=== PATIENT | female | born 1975 | race Caucasian/White ===

== ENCOUNTER 2025-08-02 07:17 | Emergency (ER) | payer OTHER, MEDICAID, SELFPAY ==
--- NOTE | ~2025-08-02 | CT_ITS ---
CLINICAL HISTORY: left lower rib pain, s p fall off a scooter CT abdomen and pelvis without contrast Comparison: None provided Findings: The lung bases are clear. The gallbladder and solid organs are within normal limits. No renal stones. No bowel obstruction, pneumoperitoneum, or pneumatosis. Pelvic contents unremarkable. The appendix is not visualized with no imaging evidence of appendicitis. IUD is in position within the uterus. The bones are intact. IMPRESSION: No acute findings. This document has been electronically signed by: Anastacio Beltre MD on 08/02/2025 08:54:30
--- NOTE | ~2025-08-02 | CT_ITS ---
CLINICAL HISTORY: trauma CT chest without contrast Comparison: None provided Findings: The heart size is normal. The visualized thyroid and mediastinum are unremarkable. The lungs are clear. The visualized upper abdomen is unremarkable. The bones are intact. IMPRESSION: 1. Unremarkable chest CT. This document has been electronically signed by: Anastacio Beltre MD on 08/02/2025 08:52:22
[2025-08-02 07:21] VITALS: BP 142/73; PULSE 101; RESP 18; TEMP 36.7; O2SAT 99; BMI 41.2
--- NOTE | 2025-08-02 07:39 | ED_ITS ---
HPI - General Adult General Chief complaint: General Medical Stated complaint: fell at work Time Seen by Provider: 08/02/25 07:29 History of Present Illness HPI narrative: Patient is a 49-year-old female was riding on her scooter. Baseline has weakness is to bilateral legs. Patient has tipped over on the scooter and hit her left lower rib area. Not on blood thinners. There is no head injury. There is no nausea no vomiting. There is no shortness of breath. There is no diaphoresis. Patient is from home. Related Data Previous Rx's ?Medication ?Instructions ?Recorded ibuprofen 400 mg tablet 400 mg PO Q6H PRN pain #20 t abs 08/02/25 Allergies Allergy/AdvReac Type Severity Reaction Status Date / Time No Known Allergies Allergy Verified 08/02/25 07:24 Review of Systems 2 Review of Systems: Positive pain to the left lower ribs Yes all other systems are reviewed and are negative [facility] Past Medical History Attestation statement: The following information was validated with the patient. Social History Social History Advance Directives: No Advance Directives Information Provided: Yes Do you have a plan to hurt others: No Plan Patient : No Physical Exam ED Exam Exam: Appearance: Alert. Oriented X3. No acute distress. Eyes: Pupils equal, round and reactive to light. ENT: Pharynx normal. Neck: Normal inspection. Neck supple. No lymph nodes noted. No crepitus CVS: Normal heart rate and rhythm. Pulses normal. Normal S1 and S2 Respiratory: No respiratory distress. Breath sounds normal. Positive left lower rib pain there is no crepitus on palpation. No gross deformity noted. no bruising noted. Abdomen: Soft and nontender. No rigidity. No distention. good BS x4 Skin: Skin warm and dry. Normal skin color. Normal skin turgor. Extremities: No lower extremity edema. Neurovascular intact to all extremities. No Lacerations. No Rash Neuro: Oriented X 3. No motor deficit. No sensory deficit. Moving all extermities. No slurred speech Vital Signs: Vital Signs - 24 hr 08/02/25 07:21 Temperature 98.0 F Pulse Rate 101 H Respiratory Rate 18 Blood Pressure 142/73 H Pulse Oximetry 99 Oxygen Delivery Method Room Air BMI result Body Mass Index 41.2 Medical Decision Making Medical Decision Making [facility] Narrative: Status post fall. Happened 2 days ago. Complaining of pain to the left lateral posterior rib area. Inferiorly. CT scan of the chest abdomen pelvis was negative. No evidence splenic injury no evidence for fracture no pneumothorax patient well-appearing will discharge home O2 sats normal in stable condition. Differential Diagnosis Differential Diagnoses: The differential diagnosis associated with the presentation includes Lab Data [facility] Lab Attestation statement: I reviewed the patient's lab results. 08/02/25 07:57 08/02/25 07:57 Labs: Lab Results 08/02/25 Range/Units 07:57 WBC 8.4 (4.8-10.8) X10*3/uL RBC 4.87 (4.20-5.50) X10*6/uL Hgb 13.9 (12.0-16.0) g/dl Hct 42.9 (37.0-47.0) % MCV 88.1 (80.0-98.0) fL MCH 28.5 (27.0-33.0) pg MCHC 32.4 (31.0-35.0) g/dl RDW 13.2 (11.0-16.0) % Plt Count 275 (160-400) X10*3/uL MPV 9.4 (9.4-12.3) fL Immature Gran % (Auto) 0.2 (0.0-0.4) % Neut % (Auto) 64.8 (45-73) % Lymph % (Auto) 26.7 (20-40) % [place] % (Auto) 5.9 (2-11) % Eos % (Auto) 1.7 (0-4) % Baso % (Auto) 0.7 (0-2) % Lymph # (Auto) 2.3 (1.2-4.9) X10*3/uL [place] # (Auto) 0.5 (0.1-1.2) X10*3/uL Eos # (Auto) 0.1 (0.0-0.4) X10*3/uL Baso # (Auto) 0.1 (0.0-0.2) X10*3/uL Abs Immat Gran (auto) 0.02 (0.00-0.03) X10*3/uL Absolute Neuts (auto) 5.5 (2.0-8.3) x10*3/uL Absolute Nucleated RBC 0.000 (0.0-0.012) X10*3/uL Nucleated RBC % (auto) 0.0 (0.0-0.2) /100WBC Sodium 142 (135-145) mmol/L Potassium 4.2 (3.3-5.1) mmol/L Chloride 108 (96-108) mmol/L Carbon Dioxide 24 (22-29) mmol/L Anion Gap 14 (12-20) BUN 18 H (9-16) mg/dL Creatinine 0.70 (0.5-1.4) mg/dL Estim Creat Clear Calc 94.4 Estimated GFR > 60 Random Glucose 107 (60-115) mg/dL Calcium 9.8 (8.4-10.2) mg/dL Total Bilirubin 0.3 (0.0-1.0) mg/dL Direct Bilirubin 0.1 (0.0-0.5) mg/dL AST 26 (5-31) U/L ALT 23 (0-31) U/L Alkaline Phosphatase 84 (39-117) U/L Total Protein 7.4 (6.5-8.0) g/dL Albumin 4.4 (3.5-5.0) g/dL Lipase 14 (8-78) U/L Beta HCG, Quant 4 mIU/mL Independent Interpretation I performed an independent interpretation of an: CT Scan (CT scan chest abdomen pelvis was grossly negative) Radiology Impression Discussion of test interpretation with radiology: I have reviewed the radiologist's reading. Prescription Management I considered prescription management with: Antiviral and Antibiotic Social Determinants Patient?s care significantly limited by Social Determinants of Health including: Problems related to primary support group Discharge Plan Discharge Clinical Impression: Contusion Patient Disposition: Home, Self-Care Instructions: Chest Contusion (ED) Prescriptions: New ibuprofen 400 mg tablet 400 mg PO Q6H PRN (Reason: pain) Qty: 20 0RF Referrals: Jada Corey MD [Primary Care Provider, Medical] Print Language: Swedish
[2025-08-02 08:03] LABS: MANUAL DIFF FLAG NO
[2025-08-02 08:04] LABS: Hematocrit 42.9 % (37.0-47.0); Hemoglobin 13.9 g/dl (12.0-16.0); Red Blood Count 4.87 X10*6/uL (4.20-5.50); White Blood Count 8.4 X10*3/uL (4.8-10.8)
[2025-08-02 08:05] LABS: Imm Gran Abs Auto 0.02 X10*3/uL (0.00-0.03); Imm Gran Pct Auto 0.2 % (0.0-0.4); Lymphocytes Absolute Auto 2.3 X10*3/uL (1.2-4.9); Mean Corpuscular HGB Conc 32.4 g/dl (31.0-35.0); Mean Corpuscular Hemoglobin 28.5 pg (27.0-33.0); Mean Corpuscular Volume 88.1 fL (80.0-98.0); NRBC Abs Auto 0.000 X10*3/uL (0.0-0.012); NRBC Pct Auto 0.0 /100WBC (0.0-0.2); Platelet Count 275 X10*3/uL (160-400)
--- OUTSIDE RECORDS SUMMARY | 2025-08-02 08:05 | XMS_ITS | Encounter Summary ---
Author Organization [facility] Address [address] [place] [address] Care Team Providers Care Store Receiver Name Role Phone Jada Corey Primary Care Provider Reason for Referral * MRI/CAT/PET Scan (Routine) - Pending Review Specialty Diagnoses / Procedures Referred By Nidia irving Referred To Contact Procedures MR IMAGES TEMPORARY (OUTSIDE STUDY) Radiology, External [address] [place] [address] Referral ID Status Reason Start Date Expiration Date V isits Requested Visits Authorized [id number] Pending Review 07/31/2025 01/30/2027 1 1 Encounter Details Date Type Department Care Team (Late st Contact Info) Description 07/31/2025 Orders Only External Imaging [address] [place] [address] Radiology, External [address] [place] [address] Social History Tobacco Use Types Packs/Day Years Used Date Smoking Tobacco: Never Assessed Comments Unknown Sex and Gender Information Value Date Recorded Sex Assigned at Not on file Legal Sex Female 12:01 PM EDT Gender Identity Female 07/31/2025 11:21 PM EDT Sexual Orientation Straight 07/31/2025 11 :21 PM EDT documented as of this encounter Plan of Treatment Upcoming Encounters Date Type Department Care Team (Late st Contact Info) Description 08/07/2025 9:30 AM EST Office Visit [facility] [address] [phone] Nora Dozier MD PhD [address] [place] [address] Scheduled Orders Name Type Priority Associated Diagnoses Orde r Schedule MR IMAGES TEMPORARY (OUTSIDE STUDY) Imaging Ramos Routine 1 Occurrences starting 07/31/2025 until 08/31/2026 documented as of this encounter Visit Diagnoses Not on filedocumented in this encounter Care Teams Store Receiver Relationship Specialty Start Date End Date Jada Corey [address] [place] [address] PCP - General Internal Medicine 07/30/25 documented as of this encounter
--- OUTSIDE RECORDS SUMMARY | 2025-08-02 08:05 | XMS_ITS | Encounter Summary ---
Author Organization [facility] Address [address] [place] [address] Care Team Providers Care Diesel Motor Mechanic Name Role Phone Jada Corey Primary Care Provider [phone] Reason for Referral * MRI/CAT/PET Scan (Routine) - Pending Review Specialty Diagnoses / Procedures Referred By Nidia irving Referred To Contact Procedures MR IMAGES TEMPORARY (OUTSIDE STUDY) Radiology, External [address] [place] [address] Referral ID Status Reason Start Date Expiration Date V isits Requested Visits Authorized [id number] Pending Review 07/31/2025 01/30/2027 1 1 Encounter Details Date Type Department Care Team (Late st Contact Info) Description 07/31/2025 Orders Only External Imaging [address] [place] [address] Radiology, External [address] [place] [address] Social History Tobacco Use Types Packs/Day Years [...] Description 08/07/2025 9:30 AM EST Office Visit [facility] [address] [phone] Nora Dozier MD PhD [address] [place] [address] Scheduled Orders Name Type Priority Associated Diagnoses Orde r Schedule MR IMAGES TEMPORARY (OUTSIDE STUDY) Imaging Ramos Routine 1 Occurrences starting 07/31/2025 until 08/31/2026 documented as of this encounter Visit Diagnoses Not on filedocumented in this encounter Care Teams Diesel Motor Mechanic Relationship Specialty Start Date End Date Jada Corey [address] [place] [address] PCP - General Internal Medicine 07/30/25 documented as of this encounter
--- OUTSIDE RECORDS SUMMARY | 2025-08-02 08:05 | XMS_ITS | Encounter Summary ---
Author Organization [facility] Address [address] [place] [address] Care Team Providers Care Consulting Project Director Name Role Phone Jada Corey Primary Care Provider [phone] Reason for Referral * MRI/CAT/PET Scan (Routine) - Pending Review Specialty Diagnoses / Procedures Referred By Nidia irving Referred To Contact Procedures MR IMAGES TEMPORARY (OUTSIDE STUDY) Radiology, External [address] [place] [address] Referral ID Status Reason Start Date Expiration Date V isits Requested Visits Authorized [id number] Pending Review 07/31/2025 01/30/2027 1 1 Encounter Details Date Type Department Care Team (Late st Contact Info) Description 07/31/2025 Orders Only External Imaging [address] [place] [address] Radiology, External [address] [place] [address] Social History Tobacco Use Types Packs/Day Years [...] Description 08/07/2025 9:30 AM EST Office Visit [facility] [address] [phone] Nora Dozier MD PhD [address] [place] [address] Scheduled Orders Name Type Priority Associated Diagnoses Orde r Schedule MR IMAGES TEMPORARY (OUTSIDE STUDY) Imaging Ramos Routine 1 Occurrences starting 07/31/2025 until 08/31/2026 documented as of this encounter Visit Diagnoses Not on filedocumented in this encounter Care Teams Consulting Project Director Relationship Specialty Start Date End Date Jada Corey [address] [place] [address] PCP - General Internal Medicine 07/30/25 documented as of this encounter
--- OUTSIDE RECORDS SUMMARY | 2025-08-02 08:05 | XMS_ITS | Clinical Summary ---
Author Organization [employer] [facility] Address [address] [place] [address] Phone Care Team Providers Care Digital Operations Analyst Name Role Phone Jada Corey MD Primary Care Provider [phone] Social History Tobacco Use Types Packs/Day Years Used Date Smoking Tobacco: Never Assessed Comments Unknown Sex and Gender Information Value Date Recorded Sex Assigned at Female 03/24/2025 3:02 PM EDT Legal Sex Female 2:50 PM EDT Gender Identity Female 03/24/2025 3:02 PM EDT Sexual Orientation Straight 03/24/2025 3: 02 PM EDT Plan of Treatment Not on file Medical Devices Not on file Insurance [facility] Care Teams Digital Operations Analyst Relationship Specialty Start Date End Date Jada Corey MD [address] [place] [phone] PCP - General Internal Medicine 03/24/25 Additional Source Comments The information contained in this document represents components of the legal health record. It is not the complete legal health record.[facility]
--- OUTSIDE RECORDS SUMMARY | 2025-08-02 08:05 | XMS_ITS ---
Author Name [facility] Organization Unknown Care Team Organization Name Specialty Phone Email Start Date End [facility] PCP Primary Care 03/07/2024
--- OUTSIDE RECORDS SUMMARY | 2025-08-02 08:06 | XMS_ITS | Encounter Summary ---
Author Organization [facility] Address [address] [place] [address] Care Team Providers Care Glass Block Bender Name Role Phone Jada Corey Primary Care Provider [phone] Reason for Referral * MRI/CAT/PET Scan (Routine) - Pending Review Specialty Diagnoses / Procedures Referred By Nidia irving Referred To Contact Procedures MR IMAGES TEMPORARY (OUTSIDE STUDY) Radiology, External [address] [place] [address] Referral ID Status Reason Start Date Expiration Date V isits Requested Visits Authorized [id number] Pending Review 07/31/2025 01/30/2027 1 1 Encounter Details Date Type Department Care Team (Late st Contact Info) Description 07/31/2025 Orders Only External Imaging [address] [place] [address] Radiology, External [address] [place] [address] Social History Tobacco Use Types Packs/Day Years [...] Description 08/07/2025 9:30 AM EST Office Visit [facility] [address] [phone] Nora Dozier MD PhD [address] [place] [address] Scheduled Orders Name Type Priority Associated Diagnoses Orde r Schedule MR IMAGES TEMPORARY (OUTSIDE STUDY) Imaging Ramos Routine 1 Occurrences starting 07/31/2025 until 08/31/2026 documented as of this encounter Visit Diagnoses Not on filedocumented in this encounter Care Teams Glass Block Bender Relationship Specialty Start Date End Date Jada Corey [address] [place] [address] PCP - General Internal Medicine 07/30/25 documented as of this encounter
--- OUTSIDE RECORDS SUMMARY | 2025-08-02 08:06 | XMS_ITS | Clinical Summary ---
Author Organization [facility] Address [address] [place] [address] Care Team Providers Care Medical Librarian Name Role Phone Leora, Jada Primary Care Provider [phone] Encounters Date Type Department Care Team Description 08/01/2025 Orders Only [facility] [address] [place] [address] Provider, Cesar, 07/31/2025 Orders Only External Imaging [address] [place] [address] Radiology, External 07/31/2025 Orders Only External Imaging [address] [place] [address] Radiology, External 07/31/2025 Orders Only External Imaging [address] [place] [address] Radiology, External 07/31/2025 Orders Only External Imaging [address] [place] [address] Radiology, External 07/31/2025 Orders Only External Imaging [address] [place] [address] Radiology, External 07/31/2025 Orders Only External Imaging [address] [place] [address] Radiology, External from Last 3 Months Social History Tobacco Use Types Packs/Day Years Used Date Smoking Tobacco: Never Assessed Comments Unknown Sex and Gender Information Value Date Recorded Sex Assigned at Not on file Legal Sex Female 12:01 PM EDT Gender Identity Female 07/31/2025 11:21 PM EDT Sexual Orientation Straight 07/31/2025 11 :21 PM EDT Plan of Treatment Upcoming Encounters Date Type Department Care Team (Late st Contact Info) Description 08/07/2025 9:30 AM EST Office Visit [facility] [address] [place] [address] Nora Dozier MD PhD [address] [place] [address] Health Maintenance Due Date Last Done Comments Cervical Cancer Screening 1973 Cologuard 1973 Colon Cancer Screening 1973 Colonoscopy 1973 FOBT / Fit Test 1973 HIV Screening 1973 HPV and Pap Smear 1973 Hepatitis C Screening 1973 Pap Smear 1973 Sigmoidoscopy 1973 Hepatitis B Vaccines (1 of 3 - 19+ 3-dose series) 1992 Mammogram 2013 Pneumococcal Vaccine: 50+ Ye ars (1 of 1 - PCV) 2023 Zoster Vaccines (1 of 2) 2023 Alcohol/Substance Use Screening 10/02/2024 Depression Screening and Follow-Up 10/02/2024 Social Drivers of Health Jackie ual Screening 10/02/2024 COVID-19 Vaccine ( - season) 2025 09/30/2021, 01/14/2021, 12/23/2020 Influenza Vaccine (#1) 2025 , 08/26/2022, 08/16/2021 DTaP,Tdap,and Td Vaccines (2 - Td or Tdap) 04/24/2031 04/24/2021 RSV Vaccine (60+ years old a nd patients) (1 - 1-dose 75+ series) 2048 Procedures * Due to [place] state law, this organization might not be sharing negative HIV tests. Procedure Name Priority Date/Time Associated Diagnosis Comments AMB EXTERNAL MRI L-SPINE, OUTSIDE RESULT Routine 07/16/2025 1:24 PM EDT from Last 3 Months Results * Due to [place] [employer] law, this organization might not be sharing negative HIV tests. * MRI L-Spine, Outside Result (07/16/2025 1:24 PM EDT) Anatomical Region Laterality Modality Other us Unknown Provider MD YOUNGER EXTERNAL RESULT PROCEDUR ES Final Result from Last 3 Months Insurance [employer] Care Teams Medical Librarian Relationship Specialty Start Date End Date Jada Corey [address] [place] [address] PCP - General Internal Medicine 07/30/25
--- OUTSIDE RECORDS SUMMARY | 2025-08-02 08:06 | XMS_ITS | Encounter Summary ---
Author Organization [facility] Address [address] [place] [address] Care Team Providers Care Arabic Teacher Name Role Phone Jada Corey Primary Care Provider [phone] Reason for Referral * MRI/CAT/PET Scan (Routine) - Pending Review Specialty Diagnoses / Procedures Referred By Nidia irving Referred To Contact Procedures MR IMAGES TEMPORARY (OUTSIDE STUDY) Radiology, External [address] [place] [address] Referral ID Status Reason Start Date Expiration Date V isits Requested Visits Authorized [id number] Pending Review 07/31/2025 01/30/2027 1 1 Encounter Details Date Type Department Care Team (Late st Contact Info) Description 07/31/2025 Orders Only External Imaging [address] [place] [address] Radiology, External [address] [place] [address] Social History Tobacco Use Types Packs/Day Years [...] Description 08/07/2025 9:30 AM EST Office Visit [facility] [address] [phone] Nora Dozier MD PhD [address] [place] [address] Scheduled Orders Name Type Priority Associated Diagnoses Orde r Schedule MR IMAGES TEMPORARY (OUTSIDE STUDY) Imaging Ramos Routine 1 Occurrences starting 07/31/2025 until 08/31/2026 documented as of this encounter Visit Diagnoses Not on filedocumented in this encounter Care Teams Arabic Teacher Relationship Specialty Start Date End Date Jada Corey [address] [place] [address] PCP - General Internal Medicine 07/30/25 documented as of this encounter
--- OUTSIDE RECORDS SUMMARY | 2025-08-02 08:06 | XMS_ITS | Clinical Summary ---
Author Organization [facility] Address [address] [place] [address] Care Team Providers Care Hat Presser Name Role Phone Pcp, No Primary Care Provider Unavailabl e Social History Tobacco Use Types Packs/Day Years Used Date Smoking Tobacco: Never Assessed Comments Unknown Sex and Gender Information Value Date Recorded Sex Assigned at Female 03/07/2024 11:29 AM EDT Legal Sex Female 11:26 AM EDT Gender Identity Female 03/07/2024 11:29 AM EDT Sexual Orientation Choose not to disclose 2023 11:29 AM EDT Plan of Treatment Health Maintenance Due Date Last Done Comments Hepatitis C Virus Screening 1973 HIV Screening 1986 DTaP/Tdap/Td Vaccines (1 - Tdap) 1992 Hepatitis B Vaccines (1 of 3 - 19+ 3-dose series) 08/02 Pap Smear (Ages 21-65) 1994 Mammogram 2013 Colonoscopy 2018 Pneumococcal Vaccines 50+ (1 of 1 - PCV) 2023 Zoster (Shingles) Vaccine (1 of 2) 2023 Influenza Vaccine 05/02/2025 COVID-19 Vaccine ( - season) 2025 RSV Vaccine 50 years and old er and Patients (1 - 1-dose 75+ series) 2048 Insurance Care Teams Hat Presser Relationship Specialty Start Date End Date Pcp, No PCP - General General Medicine 03/07/24
--- OUTSIDE RECORDS SUMMARY | 2025-08-02 08:06 | XMS_ITS | Encounter Summary ---
Author Organization [facility] Address [address] [place] [address] Care Team Providers Care Mallet Cutter Name Role Phone Jada Corey Primary Care Provider [phone] Reason for Referral * MRI/CAT/PET Scan (Routine) - Pending Review Specialty Diagnoses / Procedures Referred By Nidia irving Referred To Contact Procedures MR IMAGES TEMPORARY (OUTSIDE STUDY) Radiology, External [address] [place] [address] Referral ID Status Reason Start Date Expiration Date V isits Requested Visits Authorized [id number] Pending Review 07/31/2025 01/30/2027 1 1 Encounter Details Date Type Department Care Team (Late st Contact Info) Description 07/31/2025 Orders Only External Imaging [address] [place] [address] Radiology, External [address] [place] [address] 28529 Social History Tobacco Use Types Packs/Day Years [...] Description 08/07/2025 9:30 AM EST Office Visit [facility] [address] [phone] Nora Dozier MD PhD [address] [place] [address] Scheduled Orders Name Type Priority Associated Diagnoses Orde r Schedule MR IMAGES TEMPORARY (OUTSIDE STUDY) Imaging Ramos Routine 1 Occurrences starting 07/31/2025 until 08/31/2026 documented as of this encounter Visit Diagnoses Not on filedocumented in this encounter Care Teams Mallet Cutter Relationship Specialty Start Date End Date Jada Corey [address] [place] [address] PCP - General Internal Medicine 07/30/25 documented as of this encounter
--- OUTSIDE RECORDS SUMMARY | 2025-08-02 08:06 | XMS_ITS | Encounter Summary ---
Author Organization [facility] Address [address] [place] [address] Care Team Providers Care Bank Messenger Name Role Phone Jada Corey Primary Care Provider Encounter Details Date Type Department Care Team (Late st Contact Info) Description 08/01/2025 Orders Only [facility] [address] [place] [address] Provider, MD Cesar [facility] [place] [address] Social History Tobacco Use Types Packs/Day Years [...] Description 08/07/2025 9:30 AM EST Office Visit [facility] [address] [place] [address] Nora Dozier MD PhD [address] [place], [place] [phone] documented as of this encounter Procedures * Due to [place] state law, this organization might not be sharing negative HIV tests. Procedure Name Priority Date/Time Associated Diagnosis Comments AMB EXTERNAL MRI L-SPINE, OUTSIDE RESULT Routine 07/16/2025 1:24 PM EDT AMB EXTERNAL MRI T-SPINE, OUTSIDE RESULT Routine 10/10/2024 2:04 PM EST AMB EXTERNAL MRI C-SPINE, OUTSIDE RESULT Routine 10/10/2024 1:59 PM EST AMB EXTERNAL MRI T-SPINE, OUTSIDE RESULT Routine 03/25/2022 4:48 PM EDT AMB EXTERNAL MRI L-SPINE, OUTSIDE RESULT Routine 02/11/2022 4:45 PM EDT documented in this encounter Results * Due to [place] state law, this organization might not be sharing negative HIV tests. * MRI L-Spine, Outside Result (07/16/2025 1:24 PM EDT) Anatomical Region Laterality Modality Other us Unknown Provider MD AMB EXTERNAL RESULT PROCEDUR ES Final Result * MRI T-Spine, Outside Result (10/10/2024 2:04 PM EST) Anatomical Region Laterality Modality Other us Unknown Provider MD AMB EXTERNAL RESULT PROCEDUR ES Final Result * MRI C-Spine, Outside Result (10/10/2024 1:59 PM EST) Anatomical Region Laterality Modality Other us Unknown Provider MD AMB EXTERNAL RESULT PROCEDUR ES Final Result * MRI T-Spine, Outside Result (03/25/2022 4:48 PM EDT) Anatomical Region Laterality Modality Other us Kaylyn Estrada NP AMB EXTERNAL RESULT PROCEDU RES Final Result * MRI L-Spine, Outside Result (02/11/2022 4:45 PM EDT) Anatomical Region Laterality Modality Other us Kaylyn Estrada NP AMB EXTERNAL RESULT PROCEDU RES Final Result documented in this encounter Visit Diagnoses Not on filedocumented in this encounter Care Teams Bank Messenger Relationship Specialty Start Date End Date LeoraJada [address] [place] [address] PCP - General Internal Medicine 07/30/25 documented as of this encounter
[2025-08-02 08:25] LABS: Alanine Aminotransferase 23 U/L (0-31); Albumin Level 4.4 g/dL (3.5-5.0); Alkaline Phosphatase 84 U/L (39-117); Anion Gap 14 (12-20); Aspartate Amino Transferase 26 U/L (5-31); Blood Urea Nitrogen 18 mg/dL (9-16); Calcium 9.8 mg/dL (8.4-10.2); Carbon Dioxide 24 mmol/L (22-29); Chloride 108 mmol/L (96-108); Creatinine Clr Calc Pharmacy 94.4; Estimated Glomerular Filt Rate > 60; Lipase 14 U/L (8-78); Potassium 4.2 mmol/L (3.3-5.1); Sodium 142 mmol/L (135-145); Total Protein 7.4 g/dL (6.5-8.0)
[2025-08-02 09:35] VITALS: BP 163/107; PULSE 100; RESP 20; O2SAT 100
--- NOTE | 2025-08-02 09:39 | MHC.EDTECH ---
pt crying, was notified of pt unsatisfactory. pt feels she was brushed off. She was notified of the findings, she state Motrin won't cut it. pt family on the phone you just a money bag to them, they don't care of the patient
[2025-08-02 10:04] VITALS: RESP 18
--- NOTE | 2025-08-02 10:58 | PC.NURSE ---
Pt up for d/c per provider. At approx. 0955 this RN brings d/c paperwork into Pt. This RN is met by Pts daughter at exam room door who questions Pts d/c status. At bedside, Pt and daughter express disapproval of d/c at this time, stating Pt is still experiencing pain. This RN reviews the goals of todays visit and findings of workup. Additionally it was explained that Pt had previously reported chronic pain and mobility issues and is currently working with other medical discipline working on these issues. At this time, Pt becomes agitated and tearful. She states we placed and IV in her for an unknown reason and that she is leaving the hospital in a worse condition than when she came in. She also expresses that PO Motrin is not an effective medication. This RN advised Pt and daughter that Dr. Cardoso would be consulted and will report back. Dr. Cardoso orders 0.5 Dilaudid for pain control. Upon return to Pts room, this RN advises that 0.5mg Dilaudid was ordered for administration to assist in pain management. At this time, Pt addresses this RN stating she feels there is an attitude expressed during communication. This RN explains that Pt clearly noted her displeasure with the care provided here today and to avoid further escalation of the tension in the room, this RN opted to keep communication limited to essential needs.Furthermore this RN apologized if this came across and rude or suggested negative feels as it was only meant to eliminate confrontation. After discussion of the misunderstanding in communication both parties moved towards a positive discharge disposition. Pt resting quietly after pain med administration. Upon return to Pts room approx 20-30 mins later, Pt states she was ready for d/c. IV removed, Pt provided with wheelchair transport to waiting area were additional family took over.
[2025-08-02 11:00] VITALS: BP 163/107; PULSE 100; RESP 18; TEMP 36.7; O2SAT 100
--- NOTE | 2025-08-03 22:18 | PC.NURSE ---
Pt came in requesting copy of d/c papers. New copies given.
== END 2025-08-02 11:00 | disposition home or self-care (01) ==
PROVIDERS: Emergency Provider Emergency Medicine Emergency Medical Services; PCP Internal Medicine
DX: S20.212A Contusion of left front wall of thorax, initial encounter (principal); M79.605 Pain in left leg; M79.604 Pain in right leg; R10.22 Pelvic and perineal pain left side; W05.2XXA Fall from non-moving motorized mobility scooter, initial encounter; Y93.9 Activity, unspecified; Y92.410 Unspecified street and highway as the place of occurrence of the external cause; Y99.8 Other external cause status
CPT/HCPCS: 36415; 71250; 74176; 80048; 80076; 83690; 84702; 85025; 99284; J1171

== ENCOUNTER → 2025-08-02 07:40 | Outpatient (BNV) | payer MEDICAID, SELFPAY | PROVIDERS: Emergency Provider Emergency Medicine Emergency Medical Services; PCP Internal Medicine; Visit Provider Specialist | DX: R07.89 Other chest pain (principal); W05.2XXA Fall from non-moving motorized mobility scooter, initial encounter | CPT/HCPCS: 71250; 74176 ==

== ENCOUNTER 2025-08-09 17:49 | Emergency (ER) | payer MEDICAID, SELFPAY ==
--- NOTE | ~2025-08-09 | XR_ITS ---
CLINICAL HISTORY: back pain 3 views lumbar spine Comparison: None Findings: No fractures or dislocations. Normal vertebral body alignment. There is very minimal lumbar vertebral body spurring diffusely. There may be some disc space narrowing at L5-S1 and L4-5. Remaining intervertebral disc heights appear maintained. An IUD overlies the pelvis.. Impression: 1. Lumbar degenerative changes as described above. This document has been electronically signed by: Lance Ling MD on 08/09/2025 19:07:39
[2025-08-09 18:33] VITALS: BP 135/58; PULSE 105; RESP 18; TEMP 36.8; O2SAT 100; BMI 41.2
--- NOTE | 2025-08-09 18:33 | ED.GENADULT ---
HPI - General Adult General Chief complaint: Back Pain/Injury Stated complaint: back pain + left side pain Time Seen by Provider: 08/09/25 21:36 Source: patient and family Mode of arrival: ambulatory Limitations: no limitations History of Present Illness ED Provider: DR. Holland HPI narrative: 49-year-old female with chronic low back pain and baseline bilateral leg weakness patient ambulate with scooter, history of remote thoracic surgical laminectomy had a recent injury and fall hitting her lower back on 08/02/2025 patient had chest / abdomen / pelvis CT shows no acute internal injury after the fall then, patient was discharged home returned today for increased lower back pain. No new weakness in the lower extremities, no dysuria, no frequency urination, no urinary incontinence, no fever, no chills, no history of IV drug use, patient is using buprenorphine patch to help with the pain with no relief. Related Data Previous Rx's ?Medication ?Instructions ?Recorded ibuprofen 400 mg tablet 400 mg PO Q6H PRN pain #20 tabs 08/02/25 Allergies Allergy/AdvReac Type Severity Reaction Status Date / Time No Known Allergies Allergy Verified 08/09/25 18:35 Review of Systems Review of Systems: All other systems are reviewed and are negative Constitutional: Reports as per HPI and Reports no additional constitutional complaints Eyes: Reports as per HPI and Reports no additional eye complaints Reports system reviewed and no additional complaints, except as documented Cardiovascular: Reports as per HPI and Reports no additional cardiovascular complaints Respiratory: Reports as per HPI and Reports no additional respiratory complaints Gastrointestinal: Reports as per HPI and Reports no additional gastrointestinal complaints Genitourinary: Reports no additional female genitourinary complaints Musculoskeletal: Reports no additional musculoskeletal complaints Skin/Breast: Reports system reviewed and no additional complaints, except as docu Psychiatric: Reports no additional psychiatric complaints Endocrine: Reports no additional endocrine complaints Hematologic/Lymphatic: Reports no additional hematologic/lymphatic complaints Allergic/Immunologic: Reports no additional allergic/immunologic complaints Reports system reviewed and no additional complaints, except as documented and Reports Abnormal speech present [facility] Social History Social History Smoked in Last 30 Days: No Use of substances other than those prescribed or required for medical reasons: No Advance Directives: No Advance Directives Information Provided: Yes Patient : No Physical Exam ED Vital Signs: Vital Signs - 24 hr 08/09/25 18:33 08/09/25 20:21 08/09/25 22:14 Temperature 98.2 F 98.3 F Pulse Rate 105 H 89 Respiratory Rate 18 16 20 Blood Pressure 135/58 L 154/84 H Pulse Oximetry 100 100 Oxygen Delivery Method Room Air Room Air 08/09/25 22:15 08/10/25 00:32 08/10/25 02:09 Temperature 98.2 F 98.1 F 98.4 F Pulse Rate 91 90 96 Respiratory Rate 18 18 16 Blood Pressure 154/81 H 123/73 107/57 L Pulse Oximetry 100 98 99 Oxygen Delivery Method Room Air Room Air Room Air 08/10/25 06:26 Temperature 97.8 F Pulse Rate 81 Respiratory Rate 18 Blood Pressure 128/71 Pulse Oximetry 99 Oxygen Delivery Method Room Air BMI result Body Mass Index 41.2 Vital signs have been reviewed and appear to be correct. Blood pressure elevated. Heart rate normal. Respiratory rate normal. Temperature normal. Oxygen saturation normal. Appearance: Alert. Oriented X3. No acute distress. Head: Normal external exam. Normocephalic. Atraumatic. No Gonzalez signs noted. No raccoon eyes noted Eyes: PERRLA. EOMI. Conjunctiva and sclera normal. Eyelids normal. ENT: TM's Normal. Pharynx normal. Uvula midline. Moist mucous membranes. No trismus noted. No drooling noted. No muffled voice noted. Neck: Normal inspection. Neck supple. FROM. No adenopathy. Thyroid Normal. No meningeal signs. No neck mass noted. CVS: Normal heart rate and rhythm. Heart sound normal. No murmurs noted. Pulses normal throughout. Respiratory: No respiratory distress. Painless inspiration. Breath sounds normal. No wheezes/rales/rhonchi noted. Chest nontender. No accessory muscle usage noted or decreased air movement noted. Abdomen: Soft and nontender. Bowel sounds normal in all 4 quadrants. No distention noted. No organomegaly noted. No visible injury noted. Back: No CVA tenderness. Full range of motion noted. Skin: Skin warm and dry. Normal skin color. Normal skin turgor. No rashes/lesions/lacerations noted. Extremities: No lower extremity edema. Extremities exhibit normal range of motion. Extremities nontender. Neuro: Mental status: Normal attention, orientation, memory, and affect. Cranial nerves: Pupils are equal, round and reactive to light, EOMI, visual hagen are fall, face is symmetric, facial sensations are normal. Motor examination normal muscle tone, strength to 4 extremities. DTR are +2, planter's are flexor. Sensory exam; normal coordination, no ataxia, gait stable. Cerebellar exam: [id number] and [id number] is normal. Extrapyramidal system: No tremors, no rigidity with normal facial expressions. Pronator drift not present Course Course Course Narrative: Medical screening exam performed. Please refer to detailed history, exam, evaluation, and management by primary provider. Patient seen on August 02 after a fall. Negative workup at that time. Currently under pain management, has a buprenorphine patch. Same pain as previous but has worsened. Particularly in her low back at this time. Check labs and xray, ua. Reevaluation(s) Reevaluation #1: patient's pain is much better now rated as 3/10, patient texted her therapist and expressed some suicidal thoughts, patient feels suicidal because she is frustrated from the chronic pain said she live with every day, will keep the patient physician observation, and care team evaluation. Time: 23:56 Reevaluation #2: Time: 05:21 Date: 08/10/25 Provider: Bethel Champagne MD Patient in physician observation for psychiatric evaluation.? No acute events reported overnight. No current complaints. VS stable.? Pending CARE team evaluation. The patient is on a section 12. Will continue to monitor. Time: 09:19 Date: 08/10/25 Provider: Bethel Champagne MD Physician observation ended at 08:19 hours. P patient was evaluated by the CARE team and I obtained the following information. The patient has a therapist that knows her well and has been caring for the patient for last 6 years. The therapist has no concerns about the patient being suicidal. Patient also states she is not feeling suicidal at this time and wants to leave. Care team gave the patient a safety plan and wants the patient follow up with and [facility] and [place]. Therefore the patient will be discharged. Medications Administered Discontinued Medications Generic Name Dose Route Start Last Admin Trade Name Freq PRN Reason Stop Dose Admin Acetaminophen 975 mg 08/10/25 05:06 08/10/25 05:15 Acetaminophen 325 Mg Tablet PO 08/10/25 05:07 975 mg ONCE ONE Administration Cyclobenzaprine HCl 5 mg 08/10/25 05:06 08/10/25 05:15 Cyclobenzaprine Hcl 5 Mg Tablet PO 08/10/25 05:07 5 mg ONCE ONE Administration Gabapentin 800 mg 08/10/25 01:28 08/10/25 02:06 Gabapentin 400 Mg Capsule PO 08/10/25 01:29 800 mg ONCE ONE Administration Hydromorphone HCl 1 mg 08/09/25 21:45 08/09/25 22:14 Hydromorphone Hcl 1 Mg/Ml Syringe IM 08/09/25 21:46 1 mg ONCE ONE Administration Protocol Ketorolac Tromethamine 15 mg 08/09/25 21:45 08/09/25 22:14 Ketorolac Tromethamine 15 Mg/Ml Vial IM 08/09/25 21:46 15 mg ONCE ONE Administration Medical Decision Making Medical Decision Making [facility] Narrative: I received sign-out from my colleague Dr. Holland. Earlier today, patient was seen for back pain/flank pain. Seems that it was planned that patient was going to get discharged. However, we received a phone call from the patient's therapist. The patient texted her therapist to tell her that upon discharge from this hospital she was want to kill herself. Patient is now on a Section 12 Care team consult pending Patient complaining of worsening back pain, requesting Dilaudid. Patient was given acetaminophen and cyclobenzaprine. Care team consult pending Differential Diagnosis Differential Diagnoses: The differential diagnosis associated with the presentation includes ( Acute on chronic low back pain, fibromyalgia, electrolyte derangement, severe anemia, medical clearance, depression, SI.) Admission/Observation Consideration of admission/observation: Escalation of care including admission/observation considered Lab Data [facility] Lab Attestation statement: I reviewed the patient's lab results. 08/09/25 19:51 08/09/25 19:51 Labs: Lab Results 08/09/25 Range/Units 19:51 WBC 11.2 H (4.8-10.8) X10*3/uL RBC 4.81 (4.20-5.50) X10*6/uL Hgb 13.9 (12.0-16.0) g/dl Hct 42.7 (37.0-47.0) % MCV 88.8 (80.0-98.0) fL MCH 28.9 (27.0-33.0) pg MCHC 32.6 (31.0-35.0) g/dl RDW 13.2 (11.0-16.0) % Plt Count 334 (160-400) X10*3/uL MPV 9.3 L (9.4-12.3) fL Immature Gran % (Auto) 0.3 (0.0-0.4) % Neut % (Auto) 67.2 (45-73) % Lymph % (Auto) 24.0 (20-40) % [place] % (Auto) 6.0 (2-11) % Eos % (Auto) 1.9 (0-4) % Baso % (Auto) 0.6 (0-2) % Lymph # (Auto) 2.7 (1.2-4.9) X10*3/uL [place] # (Auto) 0.7 (0.1-1.2) X10*3/uL Eos # (Auto) 0.2 (0.0-0.4) X10*3/uL Baso # (Auto) 0.1 (0.0-0.2) X10*3/uL Abs Immat Gran (auto) 0.03 (0.00-0.03) X10*3/uL Absolute Neuts (auto) 7.5 (2.0-8.3) x10*3/uL Absolute Nucleated RBC 0.000 (0.0-0.012) X10*3/uL Nucleated RBC % (auto) 0.0 (0.0-0.2) /100WBC Sodium 142 (135-145) mmol/L Potassium 4.3 (3.3-5.1) mmol/L Chloride 107 (96-108) mmol/L Carbon Dioxide 26 (22-29) mmol/L Anion Gap 13 (12-20) BUN 18 H (9-16) mg/dL Creatinine 0.76 (0.5-1.4) mg/dL Estim Creat Clear Calc 87.0 Estimated GFR > 60 Random Glucose 119 H (60-115) mg/dL Calcium 9.4 (8.4-10.2) mg/dL Beta HCG, Quant 3 mIU/mL Ethyl Alcohol < 10 mg/dL Critical Care Time Critical Care Time Critical Care Time: Yes Total Critical Care Time: 35 Attestation: I have personally provided critical care time. Time includes review of lab data, radiology results, discussion with consultants, and monitoring for potential decompensation. Intervention performed as documented. Discharge Plan Discharge Clinical Impression: Strain of lumbar region, Suicide ideation Patient Disposition: Home, Self-Care Additional Instructions: You were seen by our care team counselor and at this time plan is to send you home. Please follow the care team plan and follow-up with NITHYA Armando Continue to take your medications as prescribed by your providers. Follow-up with your doctor in 2 days. Please return to the emergency department if your symptoms get worse or if you develop any symptoms that are concerning to you. Behavioral health instructions You were seen in our Emergency Department today for treatment of a behavioral health issue. It is important after your visit that you follow up with either your behavioral health provider or a primary care doctor within 7 days.? If you have trouble finding a therapist you can reach out to [address] [phone] The National Suicide and Crisis Lifeline can be reached 7 days a week 24 hours a day.? Call 988 to speak with someone.? Return for any worsening symptoms or concerns such as thoughts of self harm or harm to others. Please call 911 if you feel your mental health is worsening.? Prescriptions: No Action ibuprofen 400 mg tablet 400 mg PO Q6H PRN (Reason: pain) Qty: 20 0RF Interventions: ED Discharge Assessment Last Done: 08/10/25 09:43 Discharge Date/Time: 08/10/25 09:47 Print Language: Nepalese
[2025-08-09 20:03] LABS: MANUAL DIFF FLAG NO
[2025-08-09 20:15] LABS: Anion Gap 13 (12-20); Blood Urea Nitrogen 18 mg/dL (9-16); Calcium 9.4 mg/dL (8.4-10.2); Carbon Dioxide 26 mmol/L (22-29); Chloride 107 mmol/L (96-108); Creatinine Clr Calc Pharmacy 87.0; Estimated Glomerular Filt Rate > 60; Potassium 4.3 mmol/L (3.3-5.1); Sodium 142 mmol/L (135-145)
[2025-08-09 20:21] VITALS: BP 154/84; PULSE 89; RESP 16; TEMP 36.8; O2SAT 100
--- OUTSIDE RECORDS SUMMARY | 2025-08-09 20:23 | XMS_ITS | Encounter Summary ---
Author Organization [facility] Address [address] [place] [address] Care Team Providers Care Telecom Manager Name Role Phone Jada Corey Primary Care Provider [phone] Encounter Details Date Type Department Care Team (Late st Contact Info) Description 10/10/2024 Orders Only External Imaging [address] [place] [address] Radiology, External [address] [place] [address] Social History Tobacco Use Types Packs/Day Years [...] Care Team (Late st Contact Info) Description 08/11/2025 2:30 PM EST Office Visit [facility] [address] [place] [address] Nora Dozier MD PhD [address] [place] [address] Pending Results Name Type Priority Associated Diagnoses Date /Time MRI Transfer of Outside Films T-Spine Imaging Ramos Routine 08/05/2025 2:36 PM EST Scheduled Orders Name Type Priority Associated Diagnoses Orde r Schedule MRI Transfer of Outside Films T-Spine Imaging Ramos Routine 1 Occurrences starting 08/05/2025 until 09/04/2026 documented as of this encounter Visit Diagnoses Not on filedocumented in this encounter Care Teams Telecom Manager Relationship Specialty Start Date End Date Jada Corey [address] [place] [id number] PCP - General Internal Medicine 07/30/25 documented as of this encounter
--- OUTSIDE RECORDS SUMMARY | 2025-08-09 20:23 | XMS_ITS | Encounter Summary ---
Author Organization [facility] Address [address] [place] [address] Care Team Providers Care Blackjack Pit Boss Name Role Phone Jada Corey Primary Care Provider [phone] Encounter Details Date Type Department Care Team (Late st Contact Info) Description 12/24/2022 Orders Only External Imaging [address] [place] [address] Radiology, External [address] [place] [address] Social History Tobacco Use Types Packs/Day Years [...] Description 08/11/2025 2:30 PM EST Office Visit [facility] [address] [place] [address] Nora Dozier MD PhD [address] [place] [address] Pending Results Name Type Priority Associated Diagnoses Date /Time MRI ABDOMEN COMPARISON IMAGES (OUTSIDE STUDY) Imaging Ramos Routine 08/05/2025 3:48 PM EST Scheduled Orders Name Type Priority Associated Diagnoses Orde r Schedule MRI ABDOMEN COMPARISON IMAGES (OUTSIDE STUDY) Imaging Ramos Routine 1 Occurrences starting 08/05/2025 until 09/04/2026 documented as of this encounter Visit Diagnoses Not on filedocumented in this encounter Care Teams Blackjack Pit Boss Relationship Specialty Start Date End Date Jada Corey [address] [place] [id number] PCP - General Internal Medicine 07/30/25 documented as of this encounter
--- OUTSIDE RECORDS SUMMARY | 2025-08-09 20:23 | XMS_ITS | Encounter Summary ---
Author Organization [facility] Address [address] [place] [address] Care Team Providers Care Ceo And Co Founder Name Role Phone Jada Corey Primary Care Provider [phone] Encounter Details Date Type Department Care Team (Late st Contact Info) Description 10/04/2022 Orders Only External Imaging [address] [place] [address] Radiology, External [address] [place] [address] Social History Tobacco Use Types Packs/Day Years [...] Description 08/11/2025 2:30 PM EST Office Visit [facility] [address] [place] [address] oNra Dozier MD PhD [address] [place] [address] Pending Results Name Type Priority Associated Diagnoses Date /Time MRI Transfer of Outside Films T-Spine Imaging Ramos Routine 08/05/2025 2:28 PM EST Scheduled Orders Name Type Priority Associated Diagnoses Orde r Schedule MRI Transfer of Outside Films T-Spine Imaging Ramos Routine 1 Occurrences starting 08/05/2025 until 09/04/2026 documented as of this encounter Visit Diagnoses Not on filedocumented in this encounter Care Teams Ceo And Co Founder Relationship Specialty Start Date End Date Jada Corey [address] [place] [id number] PCP - General Internal Medicine 07/30/25 documented as of this encounter
--- OUTSIDE RECORDS SUMMARY | 2025-08-09 20:23 | XMS_ITS | Encounter Summary ---
Author Organization [facility] Address [address] [place] [address] Care Team Providers Care Adjuster Leader Name Role Phone Jada Corey Primary Care Provider [phone] Encounter Details Date Type Department Care Team (Late st Contact Info) Description 07/16/2025 Orders Only External Imaging [address] [place] [address] Radiology, External [address] [place] [address] Social History Tobacco Use Types Packs/Day Years [...] Description 08/11/2025 2:30 PM EST Office Visit [facility] [address] [place] [address] Nora Dozier MD PhD [address] [place] [address] Pending Results Name Type Priority Associated Diagnoses Date /Time MRI LUMBAR SPINE COMPARISON IMAGES (OUTSIDE STUDY) Imaging Ramos Routine 08/05/2025 3:34 PM EST Scheduled Orders Name Type Priority Associated Diagnoses Orde r Schedule MRI LUMBAR SPINE COMPARISON IMAGES (OUTSIDE STUDY) Imaging Ramos Routine 1 Occurrences starting 08/05/2025 until 09/04/2026 documented as of this encounter Visit Diagnoses Not on filedocumented in this encounter Care Teams Adjuster Leader Relationship Specialty Start Date End Date Jada Corey [address] [place] [id number] PCP - General Internal Medicine 07/30/25 documented as of this encounter
--- OUTSIDE RECORDS SUMMARY | 2025-08-09 20:23 | XMS_ITS | Clinical Summary ---
Author Organization [facility] Address [address] [place] [address] Care Team Providers Care Mobile Development Manager Name Role Phone LeoraJada [email or web address] Primary Care Provider [phone] Encounters Date Type Department Care Team Description 08/01/2025 Orders Only [facility] [address] [place] [address] Provider, MD Cesar 07/31/2025 Orders Only External Imaging [address] [place] [address] Radiology, External 07/31/2025 Orders Only External Imaging [address] [place] [address] Radiology, External 07/31/2025 Orders Only External Imaging [address] [place] [address] Radiology, External 07/31/2025 Orders Only External Imaging [address] [place] [address] Radiology, External 07/31/2025 Orders Only External Imaging [address] [place] [address] Radiology, External 07/31/2025 Orders Only External Imaging [address] [place] [address] Radiology, External 07/16/2025 Orders Only External Imaging [address] [place] [address] Radiology, External from Last 3 Months Social [...] Description 08/11/2025 2:30 PM EST Office Visit [facility] [address] [place] [address] Nora Dozier MD PhD [address] [place], [place] [id number] Health Maintenance Due Date Last Done Comments Cervical Cancer Screening 1973 Colonoscopy 1973 FOBT / Fit Test 1973 HIV Screening 1973 HPV and Pap Smear 1973 Hepatitis C Screening 1973 Pap Smear 1973 Sigmoidoscopy 1973 Mammogram 2013 Hepatitis B Vaccines (3 of 3 - 19+ 3-dose series) 06/11/2019 04/16/2019, 05/09/2011 Pneumococcal Vaccine: 50+ Ye ars (1 of 1 - PCV) 2023 Zoster Vaccines (1 of 2) 2023 Alcohol/Substance Use Screening 10/02/2024 Depression Screening and Follow-Up 10/02/2024 Social Drivers of Health Jackie ual Screening 10/02/2024 COVID-19 Vaccine (4 - 2024-2 6 season) 2025 09/30/2021, 01/14/2021, 12/23/2020 Influenza Vaccine (#1) 2025 , 08/26/2022, 08/16/2021, Additional history exists Cologuard 06/11/2026 06/11/2023, 06/11/2023 Colon Cancer Screening 06/11/2026 DTaP,Tdap,and Td Vaccines (3 - Td or Tdap) 04/24/2031 04/24/2021, 04/16/2019, 03/18/2009 Procedures * Due to [place] [employer] law, this organization might not be sharing negative HIV tests. Procedure Name Priority Date/Time Associated Diagnosis Comments AMB EXTERNAL MRI L-SPINE, OUTSIDE RESULT Routine 07/16/2025 1:24 PM EDT from Last 3 Months Results * Due to [place] state law, this organization might not be sharing negative HIV tests. * MRI L-Spine, Outside Result (07/16/2025 1:24 PM EDT) Anatomical Region Laterality Modality Other us Unknown Provider MD YOUNGER EXTERNAL RESULT PROCEDUR ES Final Result from Last 3 Months Insurance [facility] Care Teams Mobile Development Manager Relationship Specialty Start Date End Date Jada Corey [address] [place] [id number] PCP - General Internal Medicine 07/30/25
--- OUTSIDE RECORDS SUMMARY | 2025-08-09 20:23 | XMS_ITS | Encounter Summary ---
Author Organization [facility] Address [address] [place] [address] Care Team Providers Care Electrician Locomotive Name Role Phone Jada Corey Primary Care Provider [phone] Encounter Details Date Type Department Care Team (Late st Contact Info) Description 05/14/2022 Orders Only External Imaging [address] [place] [address] Radiology, External [address] [place] [address] Social History Tobacco Use Types Packs/Day Years [...] Description 08/11/2025 2:30 PM EST Office Visit [facility] [address] [place] [address] oNra Dozier MD PhD [address] [place] [address] Pending Results Name Type Priority Associated Diagnoses Date /Time MRI ABDOMEN COMPARISON IMAGES (OUTSIDE STUDY) Imaging Ramos Routine 08/05/2025 3:48 PM EST Scheduled Orders Name Type Priority Associated Diagnoses Orde r Schedule MRI ABDOMEN COMPARISON IMAGES (OUTSIDE STUDY) Imaging Ramos Routine 1 Occurrences starting 08/05/2025 until 09/04/2026 documented as of this encounter Visit Diagnoses Not on filedocumented in this encounter Care Teams Electrician Locomotive Relationship Specialty Start Date End Date Jada Corey [address] [place] [id number] PCP - General Internal Medicine 07/30/25 documented as of this encounter
--- OUTSIDE RECORDS SUMMARY | 2025-08-09 20:23 | XMS_ITS | Encounter Summary ---
Author Organization [facility] Address [address] [place] [address] Care Team Providers Care Radio Control Crane Operator Name Role Phone Jada Corey Primary Care Provider [phone] Encounter Details Date Type Department Care Team (Late st Contact Info) Description 11/18/2022 Orders Only External Imaging [address] [place] [address] Radiology, External [address] [place] [address] Social History Tobacco Use Types Packs/Day Years [...] Description 08/11/2025 2:30 PM EST Office Visit [facility] [address] [place] [address] Nora Dozier MD PhD [address] [place] [address] Pending Results Name Type Priority Associated Diagnoses Date /Time MRI Transfer of Outside Films T-Spine Imaging Ramos Routine 08/05/2025 3:37 PM EST Scheduled Orders Name Type Priority Associated Diagnoses Orde r Schedule MRI Transfer of Outside Films T-Spine Imaging Ramos Routine 1 Occurrences starting 08/05/2025 until 09/04/2026 documented as of this encounter Visit Diagnoses Not on filedocumented in this encounter Care Teams Radio Control Crane Operator Relationship Specialty Start Date End Date Jada Corey [address] [place] [id number] PCP - General Internal Medicine 07/30/25 documented as of this encounter
--- OUTSIDE RECORDS SUMMARY | 2025-08-09 20:23 | XMS_ITS | Encounter Summary ---
Author Organization [facility] Address [address] [place] [address] Care Team Providers Care Photographic Equipment Technician Name Role Phone Jada Corey Primary Care Provider [phone] Encounter Details Date Type Department Care Team (Late st Contact Info) Description 07/13/2022 Orders Only External Imaging [address] [place] [address] Radiology, External [address] [place] [address] Social History Tobacco Use Types Packs/Day Years [...] Description 08/11/2025 2:30 PM EST Office Visit [facility] [address] [place] [address] Nora Dozier MD PhD [address] [place] [address] Pending Results Name Type Priority Associated Diagnoses Date /Time MRI Transfer of Outside Films T-Spine Imaging Ramos Routine 08/05/2025 2:35 PM EST Scheduled Orders Name Type Priority Associated Diagnoses Orde r Schedule MRI Transfer of Outside Films T-Spine Imaging Ramso Routine 1 Occurrences starting 08/05/2025 until 09/04/2026 documented as of this encounter Visit Diagnoses Not on filedocumented in this encounter Care Teams Photographic Equipment Technician Relationship Specialty Start Date End Date Jada Corey [address] [place] [id number] PCP - General Internal Medicine 07/30/25 documented as of this encounter
--- OUTSIDE RECORDS SUMMARY | 2025-08-09 20:23 | XMS_ITS | Clinical Summary ---
Author Organization [employer] [facility] Address [address] [place] [address] Phone Care Team Providers Care Solar Crew Member Name Role Phone Jada Corey MD Primary Care Provider [phone] Social History Tobacco Use Types Packs/Day Years Used Date Smoking Tobacco: Never Assessed Comments Unknown Sex and Gender Information Value Date Recorded Sex Assigned at Female 03/24/2025 3:02 PM EDT Legal Sex Female 2:50 PM EDT Gender Identity Female 03/24/2025 3:02 PM EDT Sexual Orientation Straight 03/24/2025 3: 02 PM EDT Plan of Treatment Not on file Medical Devices Not on file Insurance [facility] [place] [facility] Address: [address] [address] [place] [facility] [place] [facility] Address: [address] [address] [facility] Care Teams Solar Crew Member Relationship Specialty Start Date End Date Jada Corey MD [address] [place] [id number] PCP - General Internal Medicine 03/24/25 Additional Source Comments The information contained in this document represents components of the legal health record. It is not the complete legal health record.[facility]
--- OUTSIDE RECORDS SUMMARY | 2025-08-09 20:23 | XMS_ITS | Encounter Summary ---
Author Organization [facility] Address [address] [place] [address] Care Team Providers Care Drum Sander Offbearer Name Role Phone Jada Corey Primary Care Provider [phone] Encounter Details Date Type Department Care Team (Late st Contact Info) Description 08/01/2025 Orders Only [facility] [address] [place] [address] Provider, MD Cesar [facility] [place] [address] Social History Tobacco Use Types [...] Description 08/11/2025 2:30 PM EST Office Visit [facility] [address] [place] [address] Nora Dozier MD PhD [address] [place], [place] [phone] documented as of this encounter Procedures * Due to [place] state law, this organization might not be [...] in this encounter Results * Due to [place] state law, this organization might not be [...] on filedocumented in this encounter Care Teams Drum Sander Offbearer Relationship Specialty Start Date End Date LeoraJada [address] [place] [address] PCP - General Internal Medicine 07/30/25 documented as of this encounter
--- OUTSIDE RECORDS SUMMARY | 2025-08-09 20:23 | XMS_ITS | Encounter Summary ---
Author Organization [facility] Address [address] [place] [address] Care Team Providers Care Medical Dosimetrist Name Role Phone Jada Corey Primary Care Provider Encounter Details Date Type Department Care Team (Late st Contact Info) Description 09/07/2022 Orders Only External Imaging [address] [place] [address] Radiology, External [address] [place] [address] Social History Tobacco Use Types Packs/Day Years [...] Description 08/11/2025 2:30 PM EST Office Visit [facility] [address] [place] [address] Nora Dozier MD PhD [address] [place] [address] Pending Results Name Type Priority Associated Diagnoses Date /Time MRI LUMBAR SPINE COMPARISON IMAGES (OUTSIDE STUDY) Imaging Ramos Routine 08/05/2025 2:35 PM EST Scheduled Orders Name Type Priority Associated Diagnoses Orde r Schedule MRI LUMBAR SPINE COMPARISON IMAGES (OUTSIDE STUDY) Imaging Ramos Routine 1 Occurrences starting 08/05/2025 until 09/04/2026 documented as of this encounter Visit Diagnoses Not on filedocumented in this encounter Care Teams Medical Dosimetrist Relationship Specialty Start Date End Date Jada Corey [address] [place] [phone] PCP - General Internal Medicine 07/30/25 documented as of this encounter
--- OUTSIDE RECORDS SUMMARY | 2025-08-09 20:23 | XMS_ITS | Encounter Summary ---
Author Organization [facility] Address [address] [place] [address] Care Team Providers Care Astro Technician Name Role Phone Jada Corey Primary Care Provider [phone] Encounter Details Date Type Department Care Team (Late st Contact Info) Description 09/07/2022 Orders Only External Imaging [address] [place] [address] Radiology, External [address] [place] [address] Social History Tobacco Use Types Packs/Day Years [...] Description 08/11/2025 2:30 PM EST Office Visit [facility] [address] [place] [address] Nora Dozier MD PhD [address] [place] [address] Pending Results Name Type Priority Associated Diagnoses Date /Time MRI LUMBAR SPINE COMPARISON IMAGES (OUTSIDE STUDY) Imaging Ramos Routine 08/05/2025 3:33 PM EST Scheduled Orders Name Type Priority Associated Diagnoses Orde r Schedule MRI LUMBAR SPINE COMPARISON IMAGES (OUTSIDE STUDY) Imaging Ramos Routine 1 Occurrences starting 08/05/2025 until 09/04/2026 documented as of this encounter Visit Diagnoses Not on filedocumented in this encounter Care Teams Astro Technician Relationship Specialty Start Date End Date Jada Corey [address] [place] [id number] PCP - General Internal Medicine 07/30/25 documented as of this encounter
--- OUTSIDE RECORDS SUMMARY | 2025-08-09 20:23 | XMS_ITS | Encounter Summary ---
Author Organization [facility] Address [address] [place] [address] Care Team Providers Care Senior Sales Compensation Analyst Name Role Phone Jada Corey Primary Care Provider [phone] Encounter Details Date Type Department Care Team (Late st Contact Info) Description 03/25/2022 Orders Only External Imaging [address] [place] [address] Radiology, External [address] [place] [address] Social History Tobacco Use Types Packs/Day Years [...] Description 08/11/2025 2:30 PM EST Office Visit [facility] [address] [place] [address] Nora Dozier MD PhD [address] [place] [address] Pending Results Name Type Priority Associated Diagnoses Date /Time MRI Transfer of Outside Films Lower Extremity Imaging Ramos Routine 08/05/2025 3:38 PM EST Scheduled Orders Name Type Priority Associated Diagnoses Orde r Schedule MRI Transfer of Outside Films Lower Extremity Imaging Ramos Routine 1 Occurrences starting 08/05/2025 until 09/04/2026 documented as of this encounter Visit Diagnoses Not on filedocumented in this encounter Care Teams Senior Sales Compensation Analyst Relationship Specialty Start Date End Date Jada Corey [address] [place] [id number] PCP - General Internal Medicine 07/30/25 documented as of this encounter
--- OUTSIDE RECORDS SUMMARY | 2025-08-09 20:23 | XMS_ITS | Encounter Summary ---
Author Organization [facility] Address [address] [place] [address] Care Team Providers Care Greenhouse Or Nursery Transplanter Name Role Phone Jada Corey Primary Care Provider [phone] Encounter Details Date Type Department Care Team (Late st Contact Info) Description 10/10/2024 Orders Only External Imaging [address] [place] [address] Radiology, External [address] [place] [address] Social History Tobacco Use Types Packs/Day Years [...] Description 08/11/2025 2:30 PM EST Office Visit [facility] [address] [place] [address] Nora Dozier MD PhD [address] [place] [address] Pending Results Name Type Priority Associated Diagnoses Date /Time MRI Transfer of Outside Films C-Spine Imaging Ramos Routine 08/05/2025 2:29 PM EST Scheduled Orders Name Type Priority Associated Diagnoses Orde r Schedule MRI Transfer of Outside Films C-Spine Imaging Ramos Routine 1 Occurrences starting 08/05/2025 until 09/04/2026 documented as of this encounter Visit Diagnoses Not on filedocumented in this encounter Care Teams Greenhouse Or Nursery Transplanter Relationship Specialty Start Date End Date Jada Corey [address] [place] [id number] PCP - General Internal Medicine 07/30/25 documented as of this encounter
--- OUTSIDE RECORDS SUMMARY | 2025-08-09 20:23 | XMS_ITS | Encounter Summary ---
Author Organization [facility] Address [address] [place] [address] Care Team Providers Care Unit Trust Manager Name Role Phone Jada Corey Primary Care Provider [phone] Encounter Details Date Type Department Care Team (Late st Contact Info) Description 01/02/2025 Orders Only External Imaging [address] [place] [address] Radiology, External [address] [place] [address] Social History Tobacco Use Types Packs/Day Years [...] Description 08/11/2025 2:30 PM EST Office Visit [facility] [address] [place] [address] Nora Dozier MD PhD [address] [place] [address] Pending Results Name Type Priority Associated Diagnoses Date /Time MRI LUMBAR SPINE COMPARISON IMAGES (OUTSIDE STUDY) Imaging Ramos Routine 08/05/2025 2:31 PM EST Scheduled Orders Name Type Priority Associated Diagnoses Orde r Schedule MRI LUMBAR SPINE COMPARISON IMAGES (OUTSIDE STUDY) Imaging Ramos Routine 1 Occurrences starting 08/05/2025 until 09/04/2026 documented as of this encounter Visit Diagnoses Not on filedocumented in this encounter Care Teams Unit Trust Manager Relationship Specialty Start Date End Date Jada Corey [address] [place] [address] PCP - General Internal Medicine 07/30/25 documented as of this encounter
--- OUTSIDE RECORDS SUMMARY | 2025-08-09 20:23 | XMS_ITS | Encounter Summary ---
Author Organization [facility] Address [address] [place] [address] Care Team Providers Care Banking Services Clerk Name Role Phone Jada Corey Primary Care Provider [phone] Encounter Details Date Type Department Care Team (Late st Contact Info) Description 05/05/2023 Orders Only External Imaging [address] [place] [address] Radiology, External [address] [place] [address] Social History Tobacco Use Types Packs/Day Years [...] Description 08/11/2025 2:30 PM EST Office Visit [facility] [address] [place] [address] Nora Dozier MD PhD [address] [place] [address] Pending Results Name Type Priority Associated Diagnoses Date /Time MRI Transfer of Outside Films T-Spine Imaging Ramos Routine 08/05/2025 3:33 PM EST Scheduled Orders Name Type Priority Associated Diagnoses Orde r Schedule MRI Transfer of Outside Films T-Spine Imaging Ramos Routine 1 Occurrences starting 08/05/2025 until 09/04/2026 documented as of this encounter Visit Diagnoses Not on filedocumented in this encounter Care Teams Banking Services Clerk Relationship Specialty Start Date End Date Jada Corey [address] [place] [id number] PCP - General Internal Medicine 07/30/25 documented as of this encounter
[2025-08-09 20:24] LABS: Hematocrit 42.7 % (37.0-47.0); Hemoglobin 13.9 g/dl (12.0-16.0); Imm Gran Abs Auto 0.03 X10*3/uL (0.00-0.03); Imm Gran Pct Auto 0.3 % (0.0-0.4); Lymphocytes Absolute Auto 2.7 X10*3/uL (1.2-4.9); Mean Corpuscular HGB Conc 32.6 g/dl (31.0-35.0); Mean Corpuscular Hemoglobin 28.9 pg (27.0-33.0); Mean Corpuscular Volume 88.8 fL (80.0-98.0); NRBC Abs Auto 0.000 X10*3/uL (0.0-0.012); NRBC Pct Auto 0.0 /100WBC (0.0-0.2); Platelet Count 334 X10*3/uL (160-400); Red Blood Count 4.81 X10*6/uL (4.20-5.50); White Blood Count 11.2 X10*3/uL (4.8-10.8)
[2025-08-09 22:14] VITALS: RESP 20
[2025-08-09 22:15] VITALS: BP 154/81; PULSE 91; RESP 18; TEMP 36.8; O2SAT 100
--- NOTE | 2025-08-09 22:32 | PC.NURSE ---
pt a&ox4, respirations even and unlabored. pt reports chronic back pain x3 months, reports being seen at multiple hospitals without relief. reports all home medications have not been helping the pain. pt reports she needs walker to ambulate as she keeps falling at home, pt reports she can not receive home services due to insurance issues. vss. pt medicated per mar and lights dimmed
--- NOTE | 2025-08-09 23:04 | PC.NURSE ---
per charge preparation technician, pt texted own clinician and stated when she leaves here after discharge she is going to kill herself , MD Holland aware. pt changed over into green attire and sitter placed on pt.
--- NOTE | 2025-08-09 23:05 | PC.NURSE ---
This advertising copy writer received call from pts outpatient clinician Dr. Cynthia Swenson who reported that she had received a message from patient that once discharged she was going to take her life. RN and MD made aware, pt placed with 1:1 sitter for safety. D/t stating she can't walk unable to go to the pod.
--- NOTE | 2025-08-09 23:36 | PC.NURSE ---
pt medications taken and placed in pharmacy bag at this time.
[2025-08-10 00:32] VITALS: BP 123/73; PULSE 90; RESP 18; TEMP 36.7; O2SAT 98
[2025-08-10 02:09] VITALS: BP 107/57; PULSE 96; RESP 16; TEMP 36.9; O2SAT 99
--- NOTE | 2025-08-10 05:12 | PC.NURSE ---
MD Ron placed section 12 on pt at this time
[2025-08-10 06:26] VITALS: BP 128/71; PULSE 81; RESP 18; TEMP 36.6; O2SAT 99
--- NOTE | 2025-08-10 06:45 | PC.NURSE ---
pt attempted to urinate x2, unable to void. Bladder scan obtained of 288. MD Ron aware, no new orders at this time
[2025-08-10 09:42] VITALS: BP 130/85; PULSE 79; RESP 16; TEMP 36.6; O2SAT 99
[2025-08-10 09:43] VITALS: BP 130/85; PULSE 79; RESP 16; TEMP 36.6; O2SAT 99
== END 2025-08-10 09:47 | disposition home or self-care (01) ==
PROVIDERS: Emergency Medicine; Physician Assistant; Emergency Provider Emergency Medicine Emergency Medical Services; PCP Internal Medicine
DX: S39.012A Strain of muscle, fascia and tendon of lower back, initial encounter (principal); R45.851 Suicidal ideations; G89.29 Other chronic pain; W19.XXXA Unspecified fall, initial encounter; Y93.9 Activity, unspecified; Y92.9 Unspecified place or not applicable; Y99.9 Unspecified external cause status
CPT/HCPCS: 36415; 72100; 80048; 80307; 84702; 85025; 96372; 99285; J1171; J1885; S9485

== ENCOUNTER → 2025-08-09 18:36 | Outpatient (BNV) | payer MEDICAID, SELFPAY | PROVIDERS: PCP Internal Medicine; Visit Provider Radiology Diagnostic Radiology | DX: M51.360 Other intervertebral disc degeneration, lumbar region with discogenic back pain only (principal) | CPT/HCPCS: 72100 ==